=== PATIENT | female | born 1980 | race Caucasian/White ===

== ENCOUNTER 2023-07-04 15:18 | Emergency (ER) | payer MEDICAID ==
[~2023-07-04] VITALS: Ht 160 cm; Wt 68.0 kg
[2023-07-04 15:33] VITALS: BP 185/113; PULSE 68; RESP 16; TEMP 97.4; O2SAT 97
[2023-07-04] MEDS ORDERED: ACETAMINOPHEN 325 MG TAB PO ONE (16:10)
[2023-07-04 16:12] LABS: BASOPHILS # (AUTO) 0.1 K/uL (0.00-0.22); BASOPHILS % (AUTO) 2.5 % (0.0-2.0); EOSINOPHILS # (AUTO) 0.2 K/uL (0-0.4); EOSINOPHILS % (AUTO) 3.2 % (0.0-4.0); HEMATOCRIT 30.2 % (36-48); HEMOGLOBIN 10.2 g/dL (12.0-16.0); LYMPHOCYTES # (AUTO) 1.7 K/uL (2.5-16.5); LYMPHOCYTES % (AUTO) 36.4 % (20.5-51.1); MEAN CORPUSCULAR HEMOGLOBIN 28 pg (27-31); MEAN CORPUSCULAR HGB CONC 34 g/dL (33-37); MONOCYTES # (AUTO) 0.3 K/uL (0.8-1.0); MONOCYTES % (AUTO) 6.2 % (1.7-9.3); NEUTROPHILS # (AUTO) 2.5 K/uL (1.8-7.7); NEUTROPHILS % (AUTO) 51.7 % (42.2-75.2); PLATELET COUNT (AUTO) 305 K/uL (140-450); RED BLOOD CELL COUNT(AUTO) 3.64 MIL/uL (4.20-5.40); RED CELL DISTRIBUTION WIDTH 16.9 % (11.6-13.7); WHITE BLOOD COUNT (AUTO) 4.8 K/uL (4.8-10.8)
[2023-07-04 16:35] LABS: ANION GAP 9.8 (8-16); CALCIUM 8.9 mg/dL (8.5-10.1); CARBON DIOXIDE 28.4 mmol/L (21-32); CREATININE 0.7 mg/dL (0.6-1.3); POTASSIUM 3.2 mmol/L (3.5-5.1)
[2023-07-04] MEDS ORDERED: lisinopriL 20 MG TAB PO ONE (16:40)
[2023-07-04] MEDS ORDERED: CRUSHER, PILL MC ONE (16:56)
[2023-07-04] MEDS ORDERED: LISI-486 PO (17:15)
[2023-07-04 17:33] VITALS: BP 174/103; PULSE 60; RESP 15; O2SAT 98
== END 2023-07-04 17:33 | disposition home or self-care (01) ==
LOC: MED 15:18
DX: I10 Essential (primary) hypertension (principal); Z79.899 Other long term (current) drug therapy
CPT/HCPCS: 36415; 71045; 80048; 81002; 83880; 84484; 85025; 93005; 99285